=== PATIENT | female | born 1985 | race Asian ===

== ENCOUNTER → 2016-07-23 | Outpatient (CLI) | payer BC ==
[2016-07-23 10:45] LABS: FREE T4 1.2 NG/DL (0.76-1.46)
== END ==
LOC: M LAB 09:58
PROVIDERS: ATTEND Family Medicine
DX: E06.3 Autoimmune thyroiditis (principal); D51.3 Other dietary vitamin B12 deficiency anemia

== ENCOUNTER → 2017-08-12 | Outpatient (CLI) | payer BC ==
[2017-08-12 18:39] LABS: FERRITIN 67 NG/ML (8-252); FREE T4 1.28 NG/DL (0.76-1.46); THYROID STIMULATING HORMONE 0.335 uIU/ML (0.358-3.740)
[2017-08-13 10:35] LABS: TOTAL 25(OH) VITAMIN D 33.6 NG/ML (30.0-100.0)
[2017-08-13 10:36] LABS: VITAMIN B12 LEVEL 648 PG/ML (247-911)
== END ==
LOC: M WUC 08:01
DX: E55.9 Vitamin D deficiency, unspecified (principal); E06.3 Autoimmune thyroiditis; D51.3 Other dietary vitamin B12 deficiency anemia; D50.9 Iron deficiency anemia, unspecified
CPT/HCPCS: 84443

== ENCOUNTER → 2018-03-09 | Outpatient (CLI) | payer BC ==
[2018-03-09 11:14] LABS: BASO % 0.5 % (0.0-1.0); EOS # 0.2 10^3/uL (0.0-0.50); HEMATOCRIT 37.4 % (36.0-47.0); HEMOGLOBIN 12.1 g/dl (12.0-15.5); IMMATURE GRANULOCYTE % 0.8 % (0-3.0); LYMPH # 2.2 10^3/uL (1.5-4.5); LYMPH % 29.3 % (24.0-44.0); MEAN CORPUSCULAR HEMOGLOBIN 28.1 pg (27.0-33.0); MEAN CORPUSCULAR HGB CONC 32.4 g/dl (32.0-36.5); MEAN CORPUSCULAR VOLUME 86.8 fl (80.0-96.0); MONO # 0.4 10^3/uL (0.0-0.8); MONO % 5.4 % (0.0-5.0); NEUTROPHILS # 4.6 10^3/uL (1.8-7.7); PLATELET COUNT, AUTOMATED 308 10^3/uL (150-450); RED BLOOD COUNT 4.31 10^6/uL (4.00-5.40); RED CELL DISTRIBUTION WIDTH 12.5 % (11.5-14.5); WHITE BLOOD COUNT 7.4 10^3/uL (4.0-10.0)
[2018-03-09 11:23] LABS: FERRITIN 52 NG/ML (8-252); FREE T4 1.01 NG/DL (0.76-1.46); IRON (FE) 93 UG/DL (50-170); PERCENT SATURATION 31.2 % (13.2-45.0); TOTAL IRON BINDING CAPACITY 298 UG/DL (250-450)
[2018-03-11 12:01] LABS: TOTAL 25(OH) VITAMIN D 29.9 NG/ML (30.0-100.0); VITAMIN B12 LEVEL 522 PG/ML (247-911)
[2018-03-13 08:06] LABS: DEHYDROEPIANDROSTERONE UNCONJ 145 ng/dL (31-701); TESTOSTERONE FREE (DIRECT) 0.9 pg/mL (0.0-4.2); ZINC PLASMA 58 ug/dL (56-134)
== END ==
LOC: M WUC 09:01
DX: E06.3 Autoimmune thyroiditis (principal); L65.9 Nonscarring hair loss, unspecified; D51.3 Other dietary vitamin B12 deficiency anemia; E55.9 Vitamin D deficiency, unspecified; D50.9 Iron deficiency anemia, unspecified; E60 Dietary zinc deficiency
CPT/HCPCS: 83550

== ENCOUNTER → 2018-03-15 | Outpatient (CLI) | payer BC ==
[2018-03-15 13:44] LABS: BASO % 0.3 % (0.0-1.0); EOS # 0.2 10^3/uL (0.0-0.50); EOS % 1.5 % (0.0-3.0); HEMATOCRIT 36.5 % (36.0-47.0); HEMOGLOBIN 11.9 g/dl (12.0-15.5); IMMATURE GRANULOCYTE % 0.6 % (0-3.0); LYMPH # 3.2 10^3/uL (1.5-4.5); LYMPH % 29.2 % (24.0-44.0); MEAN CORPUSCULAR HEMOGLOBIN 28.3 pg (27.0-33.0); MEAN CORPUSCULAR HGB CONC 32.6 g/dl (32.0-36.5); MEAN CORPUSCULAR VOLUME 86.7 fl (80.0-96.0); MONO # 0.7 10^3/uL (0.0-0.8); MONO % 6.1 % (0.0-5.0); NEUTROPHILS # 6.8 10^3/uL (1.8-7.7); NEUTROPHILS % 62.3 % (36.0-66.0); PLATELET COUNT, AUTOMATED 300 10^3/uL (150-450); RED BLOOD COUNT 4.21 10^6/uL (4.00-5.40); RED CELL DISTRIBUTION WIDTH 12.7 % (11.5-14.5); WHITE BLOOD COUNT 10.9 10^3/uL (4.0-10.0)
[2018-03-15 14:22] LABS: FREE T4 1.09 NG/DL (0.76-1.46)
== END ==
LOC: M LAB 13:11
DX: E55.9 Vitamin D deficiency, unspecified (principal); E04.1 Nontoxic single thyroid nodule
CPT/HCPCS: 84443

== ENCOUNTER → 2018-03-15 | Outpatient (CLI) | payer BC | LOC: M RAD 13:13 | DX: E04.1 Nontoxic single thyroid nodule (principal); E06.3 Autoimmune thyroiditis | CPT/HCPCS: 76536 ==